=== PATIENT | female | born 1950 | race Caucasian/White ===

== ENCOUNTER 2021-09-24 07:04 | Day surgery (SDC) | payer OTHER ==
[~2021-09-24] VITALS: Ht 172.7 cm; Wt 149.7 kg
[2021-09-24] VITALS (7 sets, daily range): BP systolic 95–120; BP diastolic 45–65
[~2021-09-24 07:04] MED LIST: ALLO300T2 PO; ASCO500T11 PO; ASPI-543 PO; CARV25TA55 PO; CHOL200021 PO; COLCPOW2 PO; FAMO-12 PO; FOLI1TAB6 PO; FURO40TA4 PO; GABA100C9 PO; HYDR-4798 PO; HYDR200T36 PO; IBAN1TAB3 PO; INSREG3 IV; INSUINJ2 SC; ISOS1TAB37 PO; LEVO112T4 PO; LOSA25TA38 PO; METF-869 PO; METF-929 PO; MULT-927 PO; NITR0.4S29 SL; OMEG10003 PO; PANT40TA2 PO; POTA10TA51 PO; VENL1TAB97 PO; [UNRECOGNIZED DRUG - CODE] XX
[2021-09-24] MEDS ORDERED: VERAPAMIL 2.5MG/ML INJ 2ML VIAL IV ONE (07:42)
[2021-09-24] MEDS ORDERED: fentaNYL CITRATE 100 MCG/2 ML VL ONE (07:42)
[2021-09-24] MEDS ORDERED: ANGIOMAX 250 MG VIAL IV ONE (07:42)
[2021-09-24] MEDS ORDERED: MIDAZOLAM HCL 2MG/2ML 2ml VIAL (1mg/ml) ONE (07:42)
[2021-09-24] MEDS ORDERED: HEPARIN SODIUM (PORCINE) 5000 UNITS/ML 1ML VIAL ONE (07:42)
[2021-09-24] MEDS ORDERED: SODIUM CHL 0.9% 0 ML ONE (07:43)
[2021-09-24] MEDS ORDERED: LIDOCAINE 2%HCL (LOCAL ANESTH.) INJ 20ML MDV ONE (07:43)
[2021-09-24] MEDS ORDERED: IODIXANOL 320MG/ML 100ML BTL IV ONE ×2 (07:43→08:26)
== END 2021-09-24 11:10 | disposition home or self-care (01) ==
LOC: CATH 07:04
PROVIDERS: ATTEND Internal Medicine Cardiovascular Disease
DX: R94.39 Abnormal result of other cardiovascular function study (principal); I25.10 Atherosclerotic heart disease of native coronary artery without angina pectoris; I12.9 Hypertensive chronic kidney disease with stage 1 through stage 4 chronic kidney disease, or unspecified chronic kidney disease; E11.22 Type 2 diabetes mellitus with diabetic chronic kidney disease; N18.9 Chronic kidney disease, unspecified; E78.5 Hyperlipidemia, unspecified; E66.01 Morbid (severe) obesity due to excess calories; Z82.49 Family history of ischemic heart disease and other diseases of the circulatory system; Z79.82 Long term (current) use of aspirin; Z20.822 Contact with and (suspected) exposure to COVID-19
CPT/HCPCS: 93458; C1769; C1887; C1894; J1644; J2250; J3010; Q9967; U0003; 99152